=== PATIENT | male | born 1970 | race Caucasian/White ===

== ENCOUNTER → 2018-06-19 06:53 | Outpatient (CLI) | payer OTHER, SELFPAY ==
--- NOTE | 2018-06-19 | DI.MRI.S_ITS ---
PROCEDURE: MR SHOULDER LT WO CON INDICATIONS: BURSITIS OF LEFT SHOULDER TECHNIQUE: Noncontrast oblique coronal T2 fast spin echo with fat saturation, oblique sagittal T1 spin echo and T2 fast spin echo with fat saturation, axial T1 spin echo and T2 fast spin echo with fat saturation through the shoulder. COMPARISON: None. FINDINGS: Image quality: Excellent. Rotator cuff: Moderate articular surface partial-thickness tear involving distal supraspinatus at its insertion the humeral head is seen extending to musculotendinous junction. Tendinosis and low-grade articular and bursal surface partial-thickness involving distal infraspinatus is seen at its insertion the humeral head. Distal subscapularis tendinosis is noted. No full-thickness rotator cuff tendon rupture. Sagittal images demonstrate mild supraspinatus muscle atrophy. Bones and bursae: No bone marrow contusions or fractures. Moderate acromioclavicular joint and glenohumeral joint osteoarthritis is seen. The acromion demonstrates conventional anatomy, without an os acromiale. No pathologic subacromial-subdeltoid or subcoracoid bursal fluid is present. Capsule and soft tissues: In the absence of intra-articular contrast, there is suggestion of superior anterior labral tear at about the 2:00 position. There is also suggestion of anterior labral tear a 5 to 6:00 position. The glenohumeral ligaments appear intact. The long head of the biceps tendon demonstrates normal location and morphology. The rotator interval appears normal, without fibrosis. The coracohumeral ligament is normal in thickness. IMPRESSION: 1. Tendinosis and moderate grade articular surface partial-thickness tear involving distal supraspinatus at its insertion the humeral head extending to musculotendinous junction. Tendinosis and low-grade articular and bursal surface partial-thickness tear involving distal infraspinatus at its insertion the humeral head. Distal subscapularis tendinosis. No full-thickness rotator cuff tendon rupture. Mild supraspinatus muscle atrophy. 2. Suggestion of focal superior anterior labral tear from 12 to 2:00 position and a possible anterior labral tear at 5 to 6:00 position. 3. [id number] acromioclavicular joint and glenohumeral joint osteoarthritis. Dictated by: Ochoa Connelly M.D. on 06/19/2018 at 14:41 Approved by: Ochoa Connelly M.D. on 06/19/2018 at 14:52
== END ==
PROVIDERS: PCP Physician Assistant Medical; Visit Provider Orthopaedic Surgery
DX: M75.51 Bursitis of right shoulder (principal)
CPT/HCPCS: 73221